=== PATIENT | male | born 1980 | race American Indian/Alaskan Native ===

== ENCOUNTER 2016-08-16 16:58 | Emergency (ER) | payer SELFPAY ==
[2016-08-16] MEDS ORDERED: FLEXERIL PO ONE (21:52)
[2016-08-16] MEDS ORDERED: TORADOL IM ONE (21:52)
--- NOTE | 2016-08-16 22:04 | Emergency Department Report ---
HPI - General Chief Complaint: Back Pain/Injury Time Seen by Provider: 08/16/16 21:11 - HPI HPI: 35-year-old male presents to ED complaining of left shoulder and back pain for the past 2 days. Patient states he was at work lifting and pulling heavy objects when he felt a pull on his left shoulder back. Patient states pain has gotten worse since then. Patient describes pain as throbbing and aching in nature. Patient states pain is localized and nonradiating. He rates the pain about a 5 out of 10 intensity. She denies fever/chills/nausea/vomiting/abdominal pain/loss of sensation/loss of consciousness or recent trauma or fall ED Past Medical Hx - Past Medical History Previous Medical History?: Yes Hx Asthma: Yes - Surgical History Past Surgical History?: No - Social History Smoking Status: Never Smoker Substance Use Type: None, Non Opiate Pain, Prescribed - Medications Home Medications: Home Medications Medication Instructions Recorded Confirmed Last Taken Type Azithromycin [Zithromax Z-CHARISSE] 250 mg PO DAILY #6 tablet 02/05/14 Unknown Rx Promethazine /Codeine 5 ml PO Q6H PRN #120 ml 02/05/14 Unknown Rx [Phenergan/Codeine 6.25-10 mg/5 ml] Acetaminophen/Codeine [Tylenol #3] 1 tab PO Q6H PRN #15 tab 08/14/15 Unknown Rx Albuterol Sulfate [Albuterol 0.63% 0.63 mg IH TID PRN #60 neb 03/28/16 Unknown Rx NEBS] Albuterol Sulfate [Ventolin HFA] 18 gm IH QID #1 hfa.aer.ad 03/28/16 Unknown Rx predniSONE [Deltasone] 40 mg PO QDAY #10 tab 03/28/16 Unknown Rx Cyclobenzaprine HCl [Flexeril 5 MG 5 mg PO TID PRN #20 tab 08/16/16 Unknown Rx TAB] Ibuprofen [Motrin 800 MG tab] 800 mg PO Q8HR PRN #30 tablet 08/16/16 Unknown Rx ED Review of Systems ROS: Stated complaint: MUSCLE SPASM Other details as noted in HPI Constitutional: denies: chills, fever Eyes: denies: eye pain, eye discharge, vision change ENT: denies: ear pain, throat pain Respiratory: denies: cough, shortness of breath, wheezing Cardiovascular: denies: chest pain, palpitations Endocrine: no symptoms reported Gastrointestinal: denies: abdominal pain, nausea, diarrhea Genitourinary: denies: urgency, dysuria Musculoskeletal: denies: back pain, joint swelling, arthralgia Skin: denies: rash, lesions Neurological: denies: headache, weakness, paresthesias Psychiatric: denies: anxiety, depression Hematological/Lymphatic: denies: easy bleeding, easy bruising Physical Exam - Physical Exam Vital Signs: Vital Signs 08/16/16 17:04 Temperature 98.5 F Pulse Rate 76 Respiratory 18 Rate Blood Pressure 136/90 O2 Sat by Pulse 99 Oximetry Physical Exam: GENERAL: Alert and oriented x3, no apparent distress, Normal Gait, atraumatic. HEAD: Head is normocephalic and a-traumatic. EYES: Extra ocular muscles are intact. Pupils are equal, round, and reactive to light and accommodation.. NECK: Supple. Non edematous, No carotid bruits. No lymphadenopathy or thyromegaly. No C-spine tenderness LUNGS: Symetrical with respiration, No wheezing, no rales or crackles, CTAB. HEART: S1, S2 present, regular rate and rhythm without murmur, no rubs, no gallops. EXTREMITIES/MUSCULOSKELETAL: No cyanosis, clubbing, rash, lesions or edema. Full ROM bilaterally. UE Pulses 2+ bilaterally. UE 5+ strength bilaterally, straight leg raise negative bilaterally. Tenderness to palpation of trapezius muscles NEUROLOGIC: No focal Deficit, Cranial nerves II through XII are grossly intact. No loss of sensation, PSYCHIATRIC: Mood is congruent with affect, denies suicidal or homicidal ideations. SKIN: Warm and dry, No lesions, No ulceration or induration present. ED Course Vital Signs 08/16/16 17:04 Temperature 98.5 F Pulse Rate 76 Respiratory 18 Rate Blood Pressure 136/90 O2 Sat by Pulse 99 Oximetry ED Medical Decision Making - Medical Decision Making 35-year-old male presents with muscle strain of the left trapezius muscles. ED course: Patient received Motrin infection ED. Disposition patient to rest the next couple of days. Discussion patient to apply heat to affected area 3 times a day. Discussed the patient take medication as prescribed. Discussed the primary care physician. Vital signs are normal patient is in no acute respiratory distress. Critical care attestation.: If time is entered above; I have spent that time in minutes in the direct care of this critically ill patient, excluding procedure time. ED Disposition Clinical Impression: Myalgia Disposition: DISCHARGED TO HOME OR SELFCARE Is pt being admited?: No Does the pt Need Aspirin: No Condition: Stable Instructions: Trigger Point Pain (ED), Musculoskeletal Pain (ED), Heat Pack Application (ED) Prescriptions: Cyclobenzaprine HCl [Flexeril 5 MG TAB] 5 mg PO TID PRN #20 tab PRN Reason: Muscle Spasm Ibuprofen [Motrin 800 MG tab] 800 mg PO Q8HR PRN #30 tablet PRN Reason: Pain Referrals: PRIMARY CAREMD [Primary Care Provider] - 3-5 Days LOVE ALCAZAR MD [Referring] - 3-5 Days [facility] [Outside] - 3-5 Days [facility] [Outside[facility] - 3-5 Days [facility] [Outside] - 3-5 Days Forms: Work/School Release Form Time of Disposition: 22:06
[2016-08-16 22:43] VITALS: BP 132/88
== END 2016-08-16 22:43 | disposition home or self-care (01) ==
LOC: ED 16:58
DX: M79.1 Myalgia (principal); J45.909 Unspecified asthma, uncomplicated
CPT/HCPCS: 96372; 99282; J1885

== ENCOUNTER 2017-07-04 10:03 | Emergency (ER) | payer BC, OTHER ==
[2017-07-04 10:47] VITALS: BP 113/71
--- NOTE | 2017-07-04 12:31 | Emergency Department Report ---
- General Chief complaint: Skin/Abscess/Foreign Body Stated complaint: INFECTION ON CHIN Time Seen by Provider: 07/04/17 12:18 Source: patient Mode of arrival: Ambulatory Limitations: No Limitations - History of Present Illness Initial comments: 36-year-old male with past medical history asthma presents with complaint of small abscess to right side chin. Patient states it has already drained pus and is significantly smaller than what it was a few days ago. Began approximately 4-5 days ago. Denies any fevers chills nausea vomiting difficulty speaking. No trismus or stridor or drooling noted on exam. Patient' s voice is normal. No visible significant neck swelling or facial swelling. Patient denies any recent dental instrumentation. MD complaint: abscess/boil Onset/Timin -: days(s) Location: face Severity: moderate Severity scale (0 -10): 3 Quality: aching Consistency: intermittent Improves with: none Worsens with: none Associated symptoms: denies other symptoms Treatments Prior to Arrival: none - Related Data Previous Rx's Medication Instructions Recorded Last Taken Type Azithromycin [Zithromax Z-CHARISSE] 250 mg PO DAILY #6 tablet 02/05/14 Unknown Rx Promethazine /Codeine 5 ml PO Q6H PRN #120 ml 02/05/14 Unknown Rx [Phenergan/Codeine 6.25-10 mg/5 ml] Acetaminophen/Codeine [Tylenol #3] 1 tab PO Q6H PRN #15 tab 08/14/15 Unknown Rx Albuterol Sulfate [Albuterol 0.63% 0.63 mg IH TID PRN #60 neb 03/28/16 Unknown Rx NEBS] Albuterol Sulfate [Ventolin HFA] 18 gm IH QID #1 hfa.aer.ad 03/28/16 Unknown Rx predniSONE [Deltasone] 40 mg PO QDAY #10 tab 03/28/16 Unknown Rx Cyclobenzaprine HCl [Flexeril 5 MG 5 mg PO TID PRN #20 tab 08/16/16 Unknown Rx TAB] Ibuprofen [Motrin 800 MG tab] 800 mg PO Q8HR PRN #30 tablet 08/16/16 Unknown Rx Cephalexin [Keflex] 500 mg PO Q12HR #14 cap 07/04/17 Unknown Rx Ibuprofen [Motrin] 800 mg PO Q8HR PRN #20 tablet 07/04/17 Unknown Rx Sulfamethoxazole/Trimethoprim 1 each PO BID #14 tablet 07/04/17 Unknown Rx [Bactrim DS TAB] Allergies Allergy/AdvReac Type Severity Reaction Status Date / Time No Known Allergies Allergy Verified 07/04/17 10:47 Abscess Boil HPI - HPI Chief Complaint: Skin/Abscess/Foreign Body Stated Complaint: INFECTION ON CHIN Time Seen by Provider: 07/04/17 12:18 Home Medications: Previous Rx's Medication Instructions Recorded Last Taken Type Azithromycin [Zithromax Z-CHARISSE] 250 mg PO DAILY #6 tablet 02/05/14 Unknown Rx Promethazine /Codeine 5 ml PO Q6H PRN #120 ml 02/05/14 Unknown Rx [Phenergan/Codeine 6.25-10 mg/5 ml] Acetaminophen/Codeine [Tylenol #3] 1 tab PO Q6H PRN #15 tab 08/14/15 Unknown Rx Albuterol Sulfate [Albuterol 0.63% 0.63 mg IH TID PRN #60 neb 03/28/16 Unknown Rx NEBS] Albuterol Sulfate [Ventolin HFA] 18 gm IH QID #1 hfa.aer.ad 03/28/16 Unknown Rx predniSONE [Deltasone] 40 mg PO QDAY #10 tab 03/28/16 Unknown Rx Cyclobenzaprine HCl [Flexeril 5 MG 5 mg PO TID PRN #20 tab 08/16/16 Unknown Rx TAB] Ibuprofen [Motrin 800 MG tab] 800 mg PO Q8HR PRN #30 tablet 08/16/16 Unknown Rx Cephalexin [Keflex] 500 mg PO Q12HR #14 cap 07/04/17 Unknown Rx Ibuprofen [Motrin] 800 mg PO Q8HR PRN #20 tablet 07/04/17 Unknown Rx Sulfamethoxazole/Trimethoprim 1 each PO BID #14 tablet 07/04/17 Unknown Rx [Bactrim DS TAB] Allergies/Adverse Reactions: Allergies Allergy/AdvReac Type Severity Reaction Status Date / Time No Known Allergies Allergy Verified 07/04/17 10:47 ED Review of Systems ROS: Stated complaint: INFECTION ON CHIN Other details as noted in HPI Constitutional: denies: chills, fever Eyes: denies: eye pain, eye discharge, vision change ENT: as per HPI. denies: ear pain, throat pain Respiratory: denies: cough, shortness of breath, wheezing Cardiovascular: denies: chest pain, palpitations Endocrine: no symptoms reported Gastrointestinal: denies: abdominal pain, nausea, diarrhea Genitourinary: denies: urgency, dysuria Musculoskeletal: denies: back pain, joint swelling, arthralgia Skin: denies: rash, lesions Neurological: denies: headache, weakness, paresthesias Psychiatric: denies: anxiety, depression Hematological/Lymphatic: denies: easy bleeding, easy bruising ED Past Medical Hx - Past Medical History Previous Medical History?: Yes Hx Asthma: Yes - Surgical History Past Surgical History?: No - Social History Smoking Status: Never Smoker Substance Use Type: None - Medications Home Medications: Home Medications Medication Instructions Recorded Confirmed Last Taken Type Azithromycin [Zithromax Z-CHARISSE] 250 mg PO DAILY #6 tablet 02/05/14 Unknown Rx Promethazine /Codeine 5 ml PO Q6H PRN #120 ml 02/05/14 Unknown Rx [Phenergan/Codeine 6.25-10 mg/5 ml] Acetaminophen/Codeine [Tylenol #3] 1 tab PO Q6H PRN #15 tab 08/14/15 Unknown Rx Albuterol Sulfate [Albuterol 0.63% 0.63 mg IH TID PRN #60 neb 03/28/16 Unknown Rx NEBS] Albuterol Sulfate [Ventolin HFA] 18 gm IH QID #1 hfa.aer.ad 03/28/16 Unknown Rx predniSONE [Deltasone] 40 mg PO QDAY #10 tab 03/28/16 Unknown Rx Cyclobenzaprine HCl [Flexeril 5 MG 5 mg PO TID PRN #20 tab 08/16/16 Unknown Rx TAB] Ibuprofen [Motrin 800 MG tab] 800 mg PO Q8HR PRN #30 tablet 08/16/16 Unknown Rx Cephalexin [Keflex] 500 mg PO Q12HR #14 cap 07/04/17 Unknown Rx Ibuprofen [Motrin] 800 mg PO Q8HR PRN #20 tablet 07/04/17 Unknown Rx Sulfamethoxazole/Trimethoprim 1 each PO BID #14 tablet 07/04/17 Unknown Rx [Bactrim DS TAB] ED Physical Exam - General Limitations: No Limitations General appearance: alert, in no apparent distress - Head Head exam: Present: atraumatic, normocephalic - Eye Eye exam: Present: normal appearance, PERRL, EOMI - ENT ENT exam: Present: normal orophraynx (oropharynx open and patent uvula is midline no signs of peritonsillar abscess), mucous membranes moist - Neck Neck exam: Present: normal inspection - Expanded Neck Exam Expanded Neck exam: Present: tenderness (some tenderness along right side jaw but no fluctuance on palpation small cellulitic area approximately 2-3 cm in diameter) 1 - Small cellulitic area here no palpable fluctuance - Respiratory Respiratory exam: Present: normal lung sounds bilaterally. Absent: respiratory distress - Cardiovascular Cardiovascular Exam: Present: regular rate, normal rhythm. Absent: systolic murmur, diastolic murmur, rubs, gallop - GI/Abdominal GI/Abdominal exam: Present: soft, normal bowel sounds - Rectal Rectal exam: Present: deferred - Extremities Exam Extremities exam: Present: normal inspection - Back Exam Back exam: Present: normal inspection - Neurological Exam Neurological exam: Present: alert, oriented X3 - Psychiatric Psychiatric exam: Present: normal affect, normal mood - Skin Skin exam: Present: warm, dry, intact, normal color. Absent: rash ED Course Vital Signs 07/04/17 10:45 Temperature 99.3 F Pulse Rate 79 Respiratory 16 Rate Blood Pressure 113/71 O2 Sat by Pulse 96 Oximetry ED Medical Decision Making - Medical Decision Making A/P: Jaw cellulitis 1-no trismus and no drooling. No difficulty swallowing or breathing as per patient 2-area of cellulitis is less than 4 cm, no palpable fluctuance. As per patient it already spontaneously drained purulent material noted no indication for incision and drainage at this time 3-course of Bactrim and Keflex twice a day for 7 days 4-Motrin when necessary Critical care attestation.: If time is entered above; I have spent that time in minutes in the direct care of this critically ill patient, excluding procedure time. ED Disposition Clinical Impression: Cellulitis of jaw, right Disposition: DC-01 TO HOME OR SELFCARE Is pt being admited?: No Does the pt Need Aspirin: No Condition: Stable Instructions: Cellulitis (ED), Abscess (ED) Prescriptions: Cephalexin [Keflex] 500 mg PO Q12HR #14 cap Ibuprofen [Motrin] 800 mg PO Q8HR PRN #20 tablet PRN Reason: Pain Sulfamethoxazole/Trimethoprim [Bactrim DS TAB] 1 each PO BID #14 tablet Referrals: [facility] [Outside] - 3-5 Days Forms: Work/School Release Form(ED) Time of Disposition: 12:43
== END 2017-07-04 12:58 | disposition home or self-care (01) ==
LOC: ED 10:03
DX: L03.211 Cellulitis of face (principal); J45.909 Unspecified asthma, uncomplicated
CPT/HCPCS: 99282

== ENCOUNTER 2018-06-07 03:39 | Emergency (ER) | payer SELFPAY ==
[2018-06-07 04:27] LABS: Basophils # (Auto) 0.1 K/mm3 (0.0-0.1); Basophils % (Auto) 1.4 % (0.0-1.8); Eosinophils # (Auto) 0.6 K/mm3 (0.0-0.4); Eosinophils % (Auto) 6.1 % (0.0-4.3); Hemoglobin 13.6 gm/dl (11.8-15.2); Lymphocytes # (Auto) 4.3 K/mm3 (1.2-5.4); Mean Corpuscular HGB Conc 34 % (32-34); Mean Corpuscular Volume 94 fl (84-94); Monocytes # (Auto) 0.5 K/mm3 (0.0-0.8); Monocytes % (Auto) 5.4 % (0.0-7.3); Platelet Count 442 K/mm3 (140-440); Red Blood Count 4.26 M/mm3 (3.65-5.03); Red Cell Distribution Width 13.9 % (13.2-15.2)
[2018-06-07 04:38] LABS: INR 1.43 (0.87-1.13)
[2018-06-07 04:39] LABS: Partial Thromboplastin Time 40.3 Sec. (24.2-36.6)
[2018-06-07 04:49] LABS: Alanine Aminotransferase 14 units/L (7-56); Albumin 3.8 g/dL (3.9-5); BUN/Creatinine Ratio 5; Blood Urea Nitrogen 6 mg/dL (9-20); Hemolysis Index 21
[2018-06-07] MEDS ORDERED: NACL 0.9% 1000 ML 1,000 ML IV ONE (06:15)
[2018-06-07] MEDS ORDERED: PROTONIX IV ONE (06:15)
--- NOTE | 2018-06-07 06:34 | Emergency Department Report ---
ED General Adult HPI - General Chief complaint: GI Bleed Stated complaint: BACK PAIN LIVER BLACK STOOL Time Seen by Provider: 06/07/18 06:13 Source: patient Mode of arrival: Ambulatory Limitations: No Limitations - History of Present Illness Initial comments: 7 year old man who is an exceptionally poor historian. He states that he was treated 3 weeks ago for a UTI with an unknown antibiotic for 10 days. He states that this made his back swell. He is not having any trouble urinating now he denies burning or frequency. He's had no fever or chills. It appears she has had some flank discomfort. He is undergoing vague. He states that every time s he eats chocolate that his stool turned black and that he has diarrhea. Last time this happened was at about 5:00 yesterday. This was preceded by "eating chocolate". He states that he realizes that is what caused his black stool now. He does not complain of abdominal pain. He has not been vomiting. Patient is essentially lying on the gurney with no complaints and no distress whatsoever. He answers questions but does not really offer any spontaneous information. He is awake and alert and oriented 4. -: week(s) Severity scale (0 -10): 2 Quality: other (perhaps some vague discomfort bilateral flank only but more the perception that he has swelling of his flank area) Consistency: intermittent Improves with: none Worsens with: none Associated Symptoms: other (as above described) - Related Data Previous Rx's Medication Instructions Recorded Last Taken Type Azithromycin [Zithromax Z-CHARISSE] 250 mg PO DAILY #6 tablet 02/05/14 Unknown Rx Promethazine /Codeine 5 ml PO Q6H PRN #120 ml 02/05/14 Unknown Rx [Phenergan/Codeine 6.25-10 mg/5 ml] Acetaminophen/Codeine [Tylenol #3] 1 tab PO Q6H PRN #15 tab 08/14/15 Unknown Rx Albuterol Sulfate [Albuterol 0.63% 0.63 mg IH TID PRN #60 neb 03/28/16 Unknown Rx NEBS] Albuterol Sulfate [Ventolin HFA] 18 gm IH QID #1 hfa.aer.ad 03/28/16 Unknown Rx predniSONE [Deltasone] 40 mg PO QDAY #10 tab 03/28/16 Unknown Rx Cyclobenzaprine HCl [Flexeril 5 MG 5 mg PO TID PRN #20 tab 08/16/16 Unknown Rx TAB] Ibuprofen [Motrin 800 MG tab] 800 mg PO Q8HR PRN #30 tablet 08/16/16 Unknown Rx Ibuprofen [Motrin] 800 mg PO Q8HR PRN #20 tablet 07/04/17 Unknown Rx Sulfamethoxazole/Trimethoprim 1 each PO BID #14 tablet 07/04/17 Unknown Rx [Bactrim DS TAB] cephALEXin [Keflex] 500 mg PO Q12HR #14 cap 07/04/17 Unknown Rx ALBUTEROL NEB's [Proventil 0.083% 2.5 mg IH Q4H PRN #1 nebu 03/10/18 Unknown Rx NEBS] Azithromycin 250 mg PO DAILY #6 tablet 03/10/18 Unknown Rx Codeine Phosphate/Guaifenesin 5 ml PO TID PRN #120 ml 03/10/18 Unknown Rx [Guaifen-Codeine 100-10 mg/5 ml] Dexamethasone [Decadron] 4 mg PO Q12H 2 Days #4 tablet 03/10/18 Unknown Rx Ibuprofen 800 mg PO TID PRN #30 tablet 03/10/18 Unknown Rx Lansoprazole [Prevacid] 15 mg PO BID #60 cap 06/07/18 Unknown Rx Allergies Allergy/AdvReac Type Severity Reaction Status Date / Time No Known Allergies Allergy Verified 07/04/17 10:47 ED Review of Systems ROS: Stated complaint: BACK PAIN LIVER BLACK STOOL Other details as noted in HPI Constitutional: denies: chills, fever Eyes: denies: eye pain, eye discharge, vision change ENT: denies: ear pain, throat pain Respiratory: denies: cough, shortness of breath, wheezing Cardiovascular: denies: chest pain, palpitations Endocrine: no symptoms reported Gastrointestinal: denies: abdominal pain, nausea, vomiting, diarrhea Genitourinary: as per HPI, other. denies: urgency, dysuria Musculoskeletal: as per HPI. denies: joint swelling, arthralgia Skin: denies: rash, lesions Neurological: denies: headache, weakness, paresthesias Psychiatric: denies: anxiety, depression Hematological/Lymphatic: denies: easy bleeding, easy bruising ED Past Medical Hx - Past Medical History Previous Medical History?: Yes Hx Asthma: Yes - Surgical History Past Surgical History?: No - Social History Smoking Status: Never Smoker Substance Use Type: Alcohol - Medications Home Medications: Home Medications Medication Instructions Recorded Confirmed Last Taken Type Azithromycin [Zithromax Z-CHARISSE] 250 mg PO DAILY #6 tablet 02/05/14 Unknown Rx Promethazine /Codeine 5 ml PO Q6H PRN #120 ml 02/05/14 Unknown Rx [Phenergan/Codeine 6.25-10 mg/5 ml] Acetaminophen/Codeine [Tylenol #3] 1 tab PO Q6H PRN #15 tab 08/14/15 Unknown Rx Albuterol Sulfate [Albuterol 0.63% 0.63 mg IH TID PRN #60 neb 03/28/16 Unknown Rx NEBS] Albuterol Sulfate [Ventolin HFA] 18 gm IH QID #1 hfa.aer.ad 03/28/16 Unknown Rx predniSONE [Deltasone] 40 mg PO QDAY #10 tab 03/28/16 Unknown Rx Cyclobenzaprine HCl [Flexeril 5 MG 5 mg PO TID PRN #20 tab 08/16/16 Unknown Rx TAB] Ibuprofen [Motrin 800 MG tab] 800 mg PO Q8HR PRN #30 tablet 08/16/16 Unknown Rx Ibuprofen [Motrin] 800 mg PO Q8HR PRN #20 tablet 07/04/17 Unknown Rx Sulfamethoxazole/Trimethoprim 1 each PO BID #14 tablet 07/04/17 Unknown Rx [Bactrim DS TAB] cephALEXin [Keflex] 500 mg PO Q12HR #14 cap 07/04/17 Unknown Rx ALBUTEROL NEB's [Proventil 0.083% 2.5 mg IH Q4H PRN #1 nebu 03/10/18 Unknown Rx NEBS] Azithromycin 250 mg PO DAILY #6 tablet 03/10/18 Unknown Rx Codeine Phosphate/Guaifenesin 5 ml PO TID PRN #120 ml 03/10/18 Unknown Rx [Guaifen-Codeine 100-10 mg/5 ml] Dexamethasone [Decadron] 4 mg PO Q12H 2 Days #4 tablet 03/10/18 Unknown Rx Ibuprofen 800 mg PO TID PRN #30 tablet 03/10/18 Unknown Rx Lansoprazole [Prevacid] 15 mg PO BID #60 cap 01/30/19 Unknown Rx ED Physical Exam - General Limitations: No Limitations General appearance: alert, in no apparent distress - Head Head exam: Present: atraumatic, normocephalic - Eye Eye exam: Present: normal appearance. Absent: scleral icterus - ENT ENT exam: Present: mucous membranes moist - Neck Neck exam: Present: normal inspection. Absent: tenderness, meningismus - Respiratory Respiratory exam: Present: normal lung sounds bilaterally. Absent: respiratory distress - Cardiovascular Cardiovascular Exam: Present: regular rate, normal rhythm. Absent: systolic murmur, diastolic murmur, rubs, gallop - GI/Abdominal GI/Abdominal exam: Present: soft, normal bowel sounds. Absent: distended, tenderness, guarding, rebound, rigid - Rectal Rectal exam: Present: heme (+) stool (very trace positive only normal colored stool). Absent: black stool, bloody stool, mass (on limited exam), tenderness - Extremities Exam Extremities exam: Present: normal inspection - Back Exam Back exam: Present: normal inspection, other. Absent: CVA tenderness (R), CVA tenderness (L), muscle spasm, paraspinal tenderness, vertebral tenderness - Neurological Exam Neurological exam: Present: alert, oriented X3, CN II-XII intact. Absent: motor sensory deficit - Psychiatric Psychiatric exam: Present: normal affect, normal mood - Skin Skin exam: Present: warm, dry, intact, normal color. Absent: rash ED Course Vital Signs 06/07/18 06/07/18 06/07/18 03:42 03:50 05:15 Temperature 98.1 F 98.1 F Pulse Rate 75 75 Respiratory 16 16 16 Rate Blood Pressure 120/69 Blood Pressure 120/69 [Right] O2 Sat by Pulse 97 97 97 Oximetry 06/07/18 05:16 Temperature Pulse Rate 69 Respiratory 13 Rate Blood Pressure 119/81 Blood Pressure [Right] O2 Sat by Pulse 98 Oximetry ED Medical Decision Making - Lab Data Result diagrams: 06/07/18 04:01 06/07/18 04:01 Laboratory Results - last 24 hr 06/07/18 06/07/18 06/07/18 04:00 04:01 04:01 WBC 9.4 RBC 4.26 Hgb 13.6 Hct 40.0 MCV 94 MCH 32 MCHC 34 RDW 13.9 Plt Count 442 H Lymph % (Auto) 46.0 H Benton % (Auto) 5.4 Eos % (Auto) 6.1 H Baso % (Auto) 1.4 Lymph # 4.3 Benton # 0.5 Eos # 0.6 H Baso # 0.1 Seg Neutrophils % 41.1 Seg Neutrophils # 3.9 PT 17.9 H INR 1.43 H APTT 40.3 H Sodium Potassium Chloride Carbon Dioxide Anion Gap BUN Creatinine Estimated GFR BUN/Creatinine Ratio Glucose Calcium Total Bilirubin AST ALT Alkaline Phosphatase Total Protein Albumin Albumin/Globulin Ratio Lipase Urine Color Yellow Urine Turbidity Clear Urine pH 5.0 Ur Specific [place] 1.009 Urine Protein <15 mg/dl Urine Glucose (UA) Neg Urine Ketones Neg Urine Blood Neg Urine Nitrite Neg Urine Bilirubin Neg Urine Urobilinogen < 2.0 Ur Leukocyte Esterase Neg Urine WBC (Auto) 3.0 Urine RBC (Auto) 1.0 Urine Mucus Few Blood Type Antibody Screen 06/07/18 06/07/18 04:01 04:01 WBC RBC Hgb Hct MCV MCH MCHC RDW Plt Count Lymph % (Auto) Benton % (Auto) Eos % (Auto) Baso % (Auto) Lymph # Benton # Eos # Baso # Seg Neutrophils % Seg Neutrophils # PT INR APTT Sodium 144 Potassium 3.6 Chloride 105.7 Carbon Dioxide 26 Anion Gap 16 BUN 6 L Creatinine 1.3 Estimated GFR > 60 BUN/Creatinine Ratio 5 Glucose 88 Calcium 9.0 Total Bilirubin 0.20 AST 11 ALT 14 Alkaline Phosphatase 43 Total Protein 6.6 Albumin 3.8 L Albumin/Globulin Ratio 1.4 Lipase 16 Urine Color Urine Turbidity Urine pH Ur Specific [place] Urine Protein Urine Glucose (UA) Urine Ketones Urine Blood Urine Nitrite Urine Bilirubin Urine Urobilinogen Ur Leukocyte Esterase Urine WBC (Auto) Urine RBC (Auto) Urine Mucus Blood Type A POSITIVE Antibody Screen Negative - EKG Data -: EKG Interpreted by Ks EKG shows normal: sinus rhythm, axis, intervals, QRS complexes, ST-T waves Rate: normal - EKG Data Interpretation: other (slight J-point elevation normal variant) - Radiology Data Radiology results: report reviewed (tiny nonobstructing stones left kidney.) Critical care attestation.: If time is entered above; I have spent that time in minutes in the direct care of this critically ill patient, excluding procedure time. ED Disposition Clinical Impression: Flank pain, Left nephrolithiasis GI bleeding Qualifiers: GI bleed type/associated pathology: unspecified gastrointestinal hemorrhage type Qualified Code(s): K92.2 - Gastrointestinal hemorrhage, unspecified Disposition: DC- TO HOME OR SELFCARE Is pt being admited?: No Does the pt Need Aspirin: No Condition: Stable Instructions: Kidney Stones (ED), Gastrointestinal Bleeding (ED) Additional Instructions: Avoid anything that may upset her stomach lining such as aspirin and Advil and alcohol. Follow-up with your primary care physician is recommended. I've also given unit information for follow-up with a GI specialist and urology. Prescriptions: Lansoprazole [Prevacid] 15 mg PO BID #60 cap Referrals: LAURA AVALOS MD [Primary Care Provider] - 2-3 Days [facility] [Provider Group] - 3-5 Days [facility] [Provider Group] - 3-5 Days Forms: Accompanied Note Time of Disposition: 08:56
[2018-06-07 06:44] LABS: Bilirubin,Urine NEG (Negative); Blood,Urine NEG (Negative); Color,Urine Yellow (Yellow); Mucus,Urine FEW /HPF; Protein,Urine <15 mg/dL mg/dL (Negative); Urobilinogen,Urine < 2.0 mg/dL (<2.0)
--- NOTE | 2018-06-07 07:33 | Ultrasound Report ---
FINAL REPORT EXAM: US RENAL BILAT HISTORY: flank pain and swelling TECHNIQUE: Routine sonographic evaluation was obtained of the kidneys and bladder. FINDINGS: The right kidney is normal in size contour and echotexture measuring 10 cm x 4.6 cm x 4.7 cm. The cor tical thickness is 1.5 cm. There is no evidence of hydronephrosis or stones. The left kidney measures 9.7 cm x 5.3 cm x 5.7 cm. The cortical thickness is 1.9 cm. There are scatte red small stones in left kidney. There is no evidence of hydronephrosis. The bladder appears normal in wall thickness. IMPRESSION: Multiple tiny nonobstructing stones in left kidney. No evidence of hydronephrosis.
[2018-06-07 09:54] VITALS: BP 111/75
== END 2018-06-07 10:05 | disposition home or self-care (01) ==
LOC: ED 03:39
DX: K92.2 Gastrointestinal hemorrhage, unspecified (principal); N20.0 Calculus of kidney; J45.909 Unspecified asthma, uncomplicated; Z79.899 Other long term (current) drug therapy
CPT/HCPCS: 36415; 76770; 80053; 81001; 83690; 85025; 85610; 85730; 86850; 86900; 86901; 93005; 93010; 96374; 99284; C9113; J7030

== ENCOUNTER 2018-07-22 03:30 | Emergency (ER) | payer OTHER ==
--- NOTE | 2018-07-22 05:08 | XRay Report ---
PROCEDURE: XR CHEST ROUTINE 2V TECHNIQUE: PA and lateral chest radiographs HISTORY: Episode of wheezing and coughing. COMPARISONS: 03/10/2018 FINDINGS: No mediastinal shift. Cardiac silhouette is not enlarged. No pneumothorax, effusion, or focal pulmo nary opacity. No acute skeletal finding. IMPRESSION: No focal pulmonary opacity. This document is electronically signed by James Page MD., July 22 2018 05:06:01 AM ET
--- NOTE | 2018-07-22 07:05 | Emergency Department Report ---
ED General Adult HPI - General Chief complaint: Dyspnea/Respdistress Stated complaint: HANY Time Seen by Provider: 07/22/18 06:44 Source: patient Mode of arrival: Ambulatory Limitations: No Limitations - History of Present Illness Initial comments: This is a 37-year-old male who ran out of his "rescue" medicine. Apparently he has an nebulizer at home as well as a hand held inhaler. 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 He states he does not need a treatment now. He states he is not wheezing now. Indeed he was here for thomas ral hours prior to my arrival and received no treatments. He has very had a negative chest x-ray. He states somebody told him that he needs steroids. -: week(s) Severity scale (0 -10): 0 Consistency: now resolved Associated Symptoms: denies other symptoms - Related Data Previous Rx's Medication Instructions Recorded Last Taken Type Azithromycin [Zithromax Z-CHARISSE] 250 mg PO DAILY #6 tablet 02/05/14 Unknown Rx Promethazine /Codeine 5 ml PO Q6H PRN #120 ml 02/05/14 Unknown Rx [Phenergan/Codeine 6.25-10 mg/5 ml] Acetaminophen/Codeine [Tylenol #3] 1 tab PO Q6H PRN #15 tab 08/14/15 Unknown Rx Albuterol Sulfate [Ventolin HFA] 18 gm IH QID #1 hfa.aer.ad 03/28/16 Unknown Rx predniSONE [Deltasone] 40 mg PO QDAY #10 tab 03/28/16 Unknown Rx Cyclobenzaprine HCl [Flexeril 5 MG 5 mg PO TID PRN #20 tab 08/16/16 Unknown Rx TAB] Ibuprofen [Motrin 800 MG tab] 800 mg PO Q8HR PRN #30 tablet 08/16/16 Unknown Rx Ibuprofen [Motrin] 800 mg PO Q8HR PRN #20 tablet 07/04/17 Unknown Rx Sulfamethoxazole/Trimethoprim 1 each PO BID #14 tablet 07/04/17 Unknown Rx [Bactrim DS TAB] cephALEXin [Keflex] 500 mg PO Q12HR #14 cap 07/04/17 Unknown Rx Azithromycin 250 mg PO DAILY #6 tablet 03/10/18 Unknown Rx Codeine Phosphate/Guaifenesin 5 ml PO TID PRN #120 ml 03/10/18 Unknown Rx [Guaifen-Codeine 100-10 mg/5 ml] Dexamethasone [Decadron] 4 mg PO Q12H 2 Days #4 tablet 03/10/18 Unknown Rx Ibuprofen 800 mg PO TID PRN #30 tablet 03/10/18 Unknown Rx Lansoprazole [Prevacid] 15 mg PO BID #60 cap 06/07/18 Unknown Rx ALBUTEROL NEB's [Proventil 0.083% 2.5 mg IH Q4H PRN #1 nebu 07/22/18 Unknown Rx NEBS] Albuterol Sulfate [Albuterol 0.63% 0.63 mg IH TID PRN #60 neb 07/22/18 Unknown Rx NEBS] Mometasone Furoate [Asmanex Hfa] 13 gm IH QPM #1 hfa.aer.ad 07/22/18 Unknown Rx Allergies Allergy/AdvReac Type Severity Reaction Status Date / Time No Known Allergies Allergy Verified 07/04/17 10:47 ED Review of Systems ROS: Stated complaint: HANY Other details as noted in HPI Constitutional: denies: chills, fever Eyes: denies: eye pain, eye discharge, vision change ENT: denies: ear pain, throat pain Respiratory: wheezing. denies: cough, shortness of breath Cardiovascular: denies: chest pain, palpitations Endocrine: no symptoms reported Gastrointestinal: denies: abdominal pain, nausea, diarrhea Genitourinary: denies: urgency, dysuria Musculoskeletal: denies: back pain, joint swelling, arthralgia Skin: denies: rash, lesions Neurological: denies: headache, weakness, paresthesias Psychiatric: denies: anxiety, depression Hematological/Lymphatic: denies: easy bleeding, easy bruising ED Past Medical Hx - Past Medical History Hx Asthma: Yes - Surgical History Past Surgical History?: No - Social History Smoking Status: Never Smoker Substance Use Type: None - Medications Home Medications: Home Medications Medication Instructions Recorded Confirmed Last Taken Type Azithromycin [Zithromax Z-CHARISSE] 250 mg PO DAILY #6 tablet 02/05/14 Unknown Rx Promethazine /Codeine 5 ml PO Q6H PRN #120 ml 02/05/14 Unknown Rx [Phenergan/Codeine 6.25-10 mg/5 ml] Acetaminophen/Codeine [Tylenol #3] 1 tab PO Q6H PRN #15 tab 08/14/15 Unknown Rx Albuterol Sulfate [Ventolin HFA] 18 gm IH QID #1 hfa.aer.ad 03/28/16 Unknown Rx predniSONE [Deltasone] 40 mg PO QDAY #10 tab 03/28/16 Unknown Rx Cyclobenzaprine HCl [Flexeril 5 MG 5 mg PO TID PRN #20 tab 08/16/16 Unknown Rx TAB] Ibuprofen [Motrin 800 MG tab] 800 mg PO Q8HR PRN #30 tablet 08/16/16 Unknown Rx Ibuprofen [Motrin] 800 mg PO Q8HR PRN #20 tablet 07/04/17 Unknown Rx Sulfamethoxazole/Trimethoprim 1 each PO BID #14 tablet 07/04/17 Unknown Rx [Bactrim DS TAB] cephALEXin [Keflex] 500 mg PO Q12HR #14 cap 07/04/17 Unknown Rx Azithromycin 250 mg PO DAILY #6 tablet 03/10/18 Unknown Rx Codeine Phosphate/Guaifenesin 5 ml PO TID PRN #120 ml 03/10/18 Unknown Rx [Guaifen-Codeine 100-10 mg/5 ml] Dexamethasone [Decadron] 4 mg PO Q12H 2 Days #4 tablet 03/10/18 Unknown Rx Ibuprofen 800 mg PO TID PRN #30 tablet 03/10/18 Unknown Rx Lansoprazole [Prevacid] 15 mg PO BID #60 cap 06/07/18 Unknown Rx ALBUTEROL NEB's [Proventil 0.083% 2.5 mg IH Q4H PRN #1 nebu 07/22/18 Unknown Rx NEBS] Albuterol Sulfate [Albuterol 0.63% 0.63 mg IH TID PRN #60 neb 07/22/18 Unknown Rx NEBS] Mometasone Furoate [Asmanex Hfa] 13 gm IH QPM #1 hfa.aer.ad 07/22/18 Unknown Rx ED Physical Exam - General Limitations: No Limitations General appearance: alert, in no apparent distress - Head Head exam: Present: atraumatic, normocephalic - Eye Eye exam: Present: normal appearance. Absent: scleral icterus - ENT ENT exam: Present: mucous membranes moist - Neck Neck exam: Present: normal inspection - Respiratory Respiratory exam: Present: normal lung sounds bilaterally. Absent: respiratory distress - Cardiovascular Cardiovascular Exam: Present: regular rate, normal rhythm. Absent: systolic murmur, diastolic murmur, rubs, gallop - GI/Abdominal GI/Abdominal exam: Present: soft, normal bowel sounds. Absent: distended, tende rness, guarding, rebound - Rectal Rectal exam: Present: deferred - Extremities Exam Extremities exam: Present: normal inspection, normal capillary refill. Absent: pedal edema, calf tenderness - Back Exam Back exam: Present: normal inspection - Neurological Exam Neurological exam: Present: alert, oriented X3, CN II-XII intact, normal gait. Absent: motor sensory deficit - Psychiatric Psychiatric exam: Present: normal affect, normal mood - Skin Skin exam: Present: warm, dry, intact, normal color. Absent: rash ED Course Vital Signs 07/22/18 03:36 Temperature 97.7 F Pulse Rate 82 Respiratory 18 Rate Blood Pressure 110/70 - Reevaluation(s) Reevaluation #1: This is a gentleman and needs primary care provider. I do not see any justification for putting him on steroids now. He is not even wheezing. I did explain this. He will be referred. I will be giving a prescription for an inhaler and medicine for his nebulizer. 07/22/18 07:03 07/22/18 07:04 Perhaps a steroid MDI would be of benefit. 07/22/18 07:05 Critical care attestation.: If time is entered above; I have spent that time in minutes in the direct care of this critically ill patient, excluding procedure time. ED Disposition Clinical Impression: Poorly controlled intermittent asthma Qualifiers: Asthma complication type: uncomplicated Qualified Code(s): J45.20 - Mild intermittent asthma, uncomplicated Disposition: DC-01 TO HOME OR SELFCARE Is pt being admited?: No Does the pt Need Aspirin: No Condition: Stable Instructions: Asthma (ED) Additional Instructions: Follow-up with primary care physician or medical clinic. I have given you a steroid inhaler and asthma medicine. Prescriptions: Albuterol Sulfate [Albuterol 0.63% NEBS] 0.63 mg IH TID PRN #60 neb PRN Reason: Wheezing Mometasone Furoate [Asmanex Hfa] 13 gm IH QPM #1 hfa.aer.ad ALBUTEROL NEB's [Proventil 0.083% NEBS] 2.5 mg IH Q4H PRN #1 nebu PRN Reason: shortness of breath wheezing Referrals: SHAR STORYBARSTOW MD ADI [Primary Care Provider] - 3-5 Days SAVI MARTIN MD [Staff Physician] - 3-5 Days Time of Disposition: 07:05
[2018-07-22 07:26] VITALS: BP 112/77
== END 2018-07-22 07:26 | disposition home or self-care (01) ==
LOC: ED 03:30
DX: J45.20 Mild intermittent asthma, uncomplicated (principal)
CPT/HCPCS: 71046; 99283

== ENCOUNTER 2019-09-11 23:27 | Emergency (ER) | payer OTHER ==
[2019-09-11 23:35] VITALS: BP 120/80
--- NOTE | 2019-09-12 01:13 | Emergency Department Report ---
ED Back Pain/Injury HPI - General Chief Complaint: Back Pain/Injury Stated Complaint: LOWER BACK PAIN Source: patient Limitations: No Limitations - History of Present Illness Initial Comments: Patient is a 39-year-old -[place] male with a history of asthma who presents to the ED with complaint of acute onset persistent low back pain for the last 2 days. Patient states that his was recently diagnosed with UTI and wondered whether he could also be having a UTI at the same time having been transmitted to him by his . Patient states that the pain is worse with any movement. Patient denies dysuria, urinary frequency and urgency, penile discharge, testicular pain, fall, heavy lifting, traumatic injury, numbness and tingling or weakness of lower extremities bilaterally, dizziness, abdominal pain, nausea, vomiting, fever or chills and hematuria. MD Complaint: back pain (lower) -: Sudden, days(s) (2) Similar Symptoms Previously: Yes Place: home Radiation: none Severity: moderate Severity scale (0 -10): 4 Quality: sharp, aching Consistency: constant Improves With: none Worsens With: movement Associated Symptoms: denies other symptoms. denies: confusion, weakness, chest pain, numbness, difficulty walking, cough, difficulty urinating, diaphoresis, incontinence, fever/chills, headaches, abdominal pain, loss of appetite, nausea/vomiting, rash, seizure, shortness of breath, syncope Treatments Prior to Arrival: NSAIDS - Related Data Previous Rx's Medication Instructions Recorded Last Taken Type Azithromycin [Zithromax Z-CHARISSE] 250 mg PO DAILY #6 tablet 02/05/14 Unknown Rx Promethazine /Codeine 5 ml PO Q6H PRN #120 ml 02/05/14 Unknown Rx [Phenergan/Codeine 6.25-10 mg/5 ml] Acetaminophen/Codeine [Tylenol #3] 1 tab PO Q6H PRN #15 tab 08/14/15 Unknown Rx Albuterol Sulfate [Ventolin HFA] 18 gm IH QID #1 hfa.aer.ad 03/28/16 Unknown Rx predniSONE [Deltasone] 40 mg PO QDAY #10 tab 03/28/16 Unknown Rx Cyclobenzaprine HCl [Flexeril 5 MG 5 mg PO TID PRN #20 tab 08/16/16 Unknown Rx TAB] Ibuprofen [Motrin 800 MG tab] 800 mg PO Q8HR PRN #30 tablet 04/10/17 Unknown Rx Sulfamethoxazole/Trimethoprim 1 each PO BID #14 tablet 07/04/17 Unknown Rx [Bactrim DS TAB] cephALEXin [Keflex] 500 mg PO Q12HR #14 cap 07/04/17 Unknown Rx Azithromycin 250 mg PO DAILY #6 tablet 03/10/18 Unknown Rx Codeine Phosphate/Guaifenesin 5 ml PO TID PRN #120 ml 03/10/18 Unknown Rx [Guaifen-Codeine 100-10 mg/5 ml] Ibuprofen 800 mg PO TID PRN #30 tablet 03/10/18 Unknown Rx dexAMETHasone [Decadron] 4 mg PO Q12H 2 Days #4 tablet 03/10/18 Unknown Rx Lansoprazole [Prevacid] 15 mg PO BID #60 cap 06/07/18 Unknown Rx ALBUTEROL NEB's [Proventil 0.083% 2.5 mg IH Q4H PRN #1 nebu 07/22/18 Unknown Rx NEBS] Albuterol Sulfate [Albuterol 0.63% 0.63 mg IH TID PRN #60 neb 07/22/18 Unknown Rx NEBS] Mometasone Furoate [Asmanex Hfa] 13 gm IH QPM #1 hfa.aer.ad 07/22/18 Unknown Rx Cyclobenzaprine [Flexeril] 10 mg PO Q8H PRN #30 tablet 09/12/19 Unknown Rx Ibuprofen [Motrin 800 MG tab] 800 mg PO Q8HR PRN #30 tablet 09/12/19 Unknown Rx Allergies Allergy/AdvReac Type Severity Reaction Status Date / Time No Known Allergies Allergy Verified 07/04/17 10:47 ED Review of Systems ROS: Stated complaint: LOWER BACK PAIN Other details as noted in HPI Constitutional: denies: chills, fever Eyes: denies: eye pain, eye discharge, vision change ENT: denies: ear pain, throat pain Respiratory: denies: cough, shortness of breath, wheezing Cardiovascular: denies: chest pain, palpitations Endocrine: no symptoms reported Gastrointestinal: denies: abdominal pain, nausea, diarrhea Genitourinary: denies: urgency, dysuria Musculoskeletal: back pain (Lower back pain), arthralgia, myalgia. denies: joint swelling Skin: denies: rash, lesions Neurological: denies: headache, weakness, paresthesias Psychiatric: denies: anxiety, depression Hematological/Lymphatic: denies: easy bleeding, easy bruising ED Past Medical Hx - Past Medical History Previous Medical History?: Yes Hx Asthma: Yes - Surgical History Past Surgical History?: No - Social History Smoking Status: Never Smoker Substance Use Type: Alcohol - Medications Home Medications: Home Medications Medication Instructions Recorded Confirmed Last Taken Type Azithromycin [Zithromax Z-CHARISSE] 250 mg PO DAILY #6 tablet 02/05/14 Unknown Rx Promethazine /Codeine 5 ml PO Q6H PRN #120 ml 02/05/14 Unknown Rx [Phenergan/Codeine 6.25-10 mg/5 ml] Acetaminophen/Codeine [Tylenol #3] 1 tab PO Q6H PRN #15 tab 08/14/15 Unknown Rx Albuterol Sulfate [Ventolin HFA] 18 gm IH QID #1 hfa.aer.ad 03/28/16 Unknown Rx predniSONE [Deltasone] 40 mg PO QDAY #10 tab 03/28/16 Unknown Rx Cyclobenzaprine HCl [Flexeril 5 MG 5 mg PO TID PRN #20 tab 08/16/16 Unknown Rx TAB] Ibuprofen [Motrin 800 MG tab] 800 mg PO Q8HR PRN #30 tablet 08/16/16 Unknown Rx Sulfamethoxazole/Trimethoprim 1 each PO BID #14 tablet 07/04/17 Unknown Rx [Bactrim DS TAB] cephALEXin [Keflex] 500 mg PO Q12HR #14 cap 07/04/17 Unknown Rx Azithromycin 250 mg PO DAILY #6 tablet 03/10/18 Unknown Rx Codeine Phosphate/Guaifenesin 5 ml PO TID PRN #120 ml 03/10/18 Unknown Rx [Guaifen-Codeine 100-10 mg/5 ml] Ibuprofen 800 mg PO TID PRN #30 tablet 03/10/18 Unknown Rx dexAMETHasone [Decadron] 4 mg PO Q12H 2 Days #4 tablet 03/10/18 Unknown Rx Lansoprazole [Prevacid] 15 mg PO BID #60 cap 06/07/18 Unknown Rx ALBUTEROL NEB's [Proventil 0.083% 2.5 mg IH Q4H PRN #1 nebu 07/22/18 Unknown Rx NEBS] Albuterol Sulfate [Albuterol 0.63% 0.63 mg IH TID PRN #60 neb 07/22/18 Unknown Rx NEBS] Mometasone Furoate [Asmanex Hfa] 13 gm IH QPM #1 hfa.aer.ad 07/22/18 Unknown Rx Cyclobenzaprine [Flexeril] 10 mg PO Q8H PRN #30 tablet 09/12/19 Unknown Rx Ibuprofen [Motrin 800 MG tab] 800 mg PO Q8HR PRN #30 tablet 09/12/19 Unknown Rx ED Physical Exam - General Limitations: No Limitations General appearance: alert, in no apparent distress - Head Head exam: Present: atraumatic, normocephalic, normal inspection - Eye Eye exam: Present: normal appearance, PERRL, EOMI Pupils: Present: normal accommodation - ENT ENT exam: Present: normal exam, normal orophraynx, mucous membranes moist, TM's normal bilaterally, normal external ear exam - Neck Neck exam: Present: normal inspection, full ROM. Absent: tenderness, lymphadenopathy - Respiratory Respiratory exam: Present: normal lung sounds bilaterally. Absent: respiratory distress, wheezes, rales, rhonchi, stridor, chest wall tenderness, accessory muscle use, decreased breath sounds, prolonged expiratory - Cardiovascular Cardiovascular Exam: Present: regular rate, normal rhythm, normal heart sounds. Absent: systolic murmur, diastolic murmur, rubs, gallop - GI/Abdominal GI/Abdominal exam: Present: soft, normal bowel sounds. Absent: tenderness, guarding, rebound, hyperactive bowel sounds, hypoactive bowel sounds, organomegaly, mass - Extremities Exam Extremities exam: Present: normal inspection, full ROM, normal capillary refill - Back Exam Back exam: Present: normal inspection, full ROM, tenderness (Palpable lumbosacral paraspinal musculoskeletal tenderness), muscle spasm, paraspinal tenderness - Neurological Exam Neurological exam: Present: alert, oriented X3, CN II-XII intact, normal gait, reflexes normal - Psychiatric Psychiatric exam: Present: normal affect, normal mood - Skin Skin exam: Present: warm, dry, intact, normal color. Absent: rash ED Course Vital Signs 09/11/19 23:33 Temperature 98.2 F Pulse Rate 76 Respiratory 16 Rate Blood Pressure 120/80 O2 Sat by Pulse 96 Oximetry ED Medical Decision Making - Medical Decision Making This is a 39-year-old -[place] male with a history of asthma who presents to the ED with complaint of acute onset persistent low back pain for the last 2 days. Patient states that his was recently diagnosed with UTI and wondered whether he could also be having a UTI at the same time having been transmitted to him by his . Patient states that the pain is worse with any movement. In the ED, patient is alert and oriented x3 and is not in any distress. Urinalysis was performed and patient treated for pain in the ED, and was normal with no hematuria. Patient was discharged home on pain medications and muscle relaxants and was advised to follow up with his Primary Care Physician in 7-10 days for reevaluation. Patient also advised to return to the ED immediately if symptoms get worse. - Differential Diagnosis Muscle spasm, Muscle strain; UTI; Kidney stones Critical care attestation.: If time is entered above; I have spent that time in minutes in the direct care of this critically ill patient, excluding procedure time. ED Disposition Clinical Impression: Strain of muscle, fascia and tendon of lower back, initial encounter Acute low back pain Qualifiers: Back pain laterality: bilateral Sciatica presence: without sciatica Qualified Code(s): M54.5 - Low back pain Disposition: TO HOME OR SELFCARE Is pt being admited?: No Does the pt Need Aspirin: No Condition: Stable Instructions: Muscle Strain (ED), Acute Low Back Pain (ED), Muscle Spasm (ED) Additional Instructions: Take medications with food, drink plenty of fluids and follow with your Primary Care Physician in 5-7 days for reevaluation. Return to the ED immediately if symptoms get worse. Prescriptions: Cyclobenzaprine [Flexeril] 10 mg PO Q8H PRN #30 tablet PRN Reason: Muscle Spasm Ibuprofen [Motrin 800 MG tab] 800 mg PO Q8HR PRN #30 tablet PRN Reason: Pain Referrals: [facility] [Provider Group] - 3-5 Days Time of Disposition: 01:16 Print Language: SAMI
[2019-09-12 01:16] LABS: Bilirubin,Urine NEG (Negative); Blood,Urine NEG (Negative); Color,Urine Yellow (Yellow); Mucus,Urine FEW /HPF; Protein,Urine <15 mg/dL mg/dL (Negative); Urobilinogen,Urine < 2.0 mg/dL (<2.0)
[2019-09-12] MEDS ORDERED: ACETAMINOPHEN 500 MG TAB PO ONE (01:18)
[2019-09-12] MEDS ORDERED: IBUPROFEN 600 MG TAB PO ONE (01:18)
== END 2019-09-12 01:46 | disposition home or self-care (01) ==
LOC: ED 23:27
DX: S39.012A Strain of muscle, fascia and tendon of lower back, initial encounter (principal); J45.909 Unspecified asthma, uncomplicated; Z79.899 Other long term (current) drug therapy; X58.XXXA Exposure to other specified factors, initial encounter; Y93.89 Activity, other specified; Y92.89 Other specified places as the place of occurrence of the external cause; Y99.8 Other external cause status
CPT/HCPCS: 81001